=== PATIENT | male | born 1975 | race African-American/Black ===

== ENCOUNTER → 2022-07-22 | Outpatient (CLI) | payer OTHER ==
[~2022-07-22] VITALS: Ht 25.4 cm; Wt 128.0 kg
== END | disposition home or self-care (01) ==
LOC: DTH 12:19
PROVIDERS: ATTEND Surgery
DX: Z71.3 Dietary counseling and surveillance (principal); E66.9 Obesity, unspecified; Z68.41 Body mass index [BMI] 40.0-44.9, adult
CPT/HCPCS: 97802

== ENCOUNTER 2022-07-28 16:07 | Emergency (ER) | payer OTHER ==
[~2022-07-28] VITALS: Ht 177.8 cm; Wt 127.0 kg
[2022-07-28 16:23] VITALS: BP 144/96
[2022-07-28] MEDS ORDERED: CLIN-141 PO (18:06)
[2022-07-28] MEDS ORDERED: ACET-2079 PO (18:06)
== END 2022-07-28 18:16 | disposition home or self-care (01) ==
LOC: EDH 16:07
DX: K04.7 Periapical abscess without sinus (principal); E11.22 Type 2 diabetes mellitus with diabetic chronic kidney disease; N18.6 End stage renal disease; I95.9 Hypotension, unspecified; E78.00 Pure hypercholesterolemia, unspecified; Z79.899 Other long term (current) drug therapy

== ENCOUNTER → 2022-08-14 | Outpatient (CLI) | payer OTHER ==
[~2022-08-14] MED LIST: ACET-2079 PO; CLIN-141 PO
== END | disposition home or self-care (01) ==
LOC: DTH 11:49 → EDUNIT# 12:00
PROVIDERS: ATTEND Surgery
DX: Z71.3 Dietary counseling and surveillance (principal); E66.09 Other obesity due to excess calories; E11.9 Type 2 diabetes mellitus without complications; E78.00 Pure hypercholesterolemia, unspecified; M19.91 Primary osteoarthritis, unspecified site; K21.9 Gastro-esophageal reflux disease without esophagitis; G47.33 Obstructive sleep apnea (adult) (pediatric); Z68.39 Body mass index [BMI] 39.0-39.9, adult
CPT/HCPCS: 97803

== ENCOUNTER → 2022-09-04 | Outpatient (CLI) | payer OTHER | END | disposition home or self-care (01) | LOC: EDUNIT# 12:00 → DTH 12:29 | PROVIDERS: ATTEND Surgery | DX: Z71.3 Dietary counseling and surveillance (principal); E11.9 Type 2 diabetes mellitus without complications; K21.9 Gastro-esophageal reflux disease without esophagitis; E78.00 Pure hypercholesterolemia, unspecified; M19.91 Primary osteoarthritis, unspecified site; G47.33 Obstructive sleep apnea (adult) (pediatric); E66.09 Other obesity due to excess calories; Z68.39 Body mass index [BMI] 39.0-39.9, adult | CPT/HCPCS: 97803 ==

== ENCOUNTER 2024-12-02 07:37 | Day surgery (SDC) | payer OTHER ==
[2024-11-29 15:38] LABS: IMMATURE GRANULOCYTE ABSOLUTE 0.02 K/uL (0-1); NUCLEATED RED BLOOD CELLS 0.0 % (0.0-0.19); PLATELET COUNT (AUTO) 156 K/uL (130-400); RED BLOOD CELL COUNT(AUTO) 3.86 MIL/uL (4.50-6.20); RED CELL DISTRIBUTION WIDTH 13.4 % (11.0-15.5); WHITE BLOOD COUNT (AUTO) 6.5 K/uL (4.8-10.8)
[2024-11-29 15:59] LABS: ASPARTATE AMINOTRANSFERASE 16.0 U/L (10-37); GLOMERULAR FILTR. RATE CALC 5.0 mL/min (>90); GLUCOSE,RANDOM 182.0 mg/dL (70-105); SODIUM SERUM 139.0 mmol/L (136-145); TOTAL PROTEIN, SERUM 8.0 g/dL (6.0-8.3); UREA NITROGEN, BLOOD 43.0 mg/dL (7-18)
[2024-11-29 16:08] LABS: CREATININE 10.8 mg/dL (0.5-1.3); INR 1.02 (0.85-1.15)
[2024-11-29 16:10] VITALS: BP 149/72; PULSE 85; RESP 16; TEMP 98
[~2024-12-02] VITALS: Ht 177.8 cm; Wt 145.8 kg
[2024-12-02] VITALS (16 sets, daily range): BP systolic 114–172; BP diastolic 60–98; PULSE 68–87; RESP 14–20; TEMP 97.8–98.2
[~2024-12-02 07:37] MED LIST changes: -ACET-2079 PO; +AMMO385C4 TP; +ASPI-1443 PO; +CINA30 PO; -CLIN-141 PO; +FOLI0.8T22 PO; +MIDO5TAB4 PO; +PANT40TA54 PO; +ROSUVASTATIN PO; +SEVELAMER CARB PO; +SUCR500T PO; +TIZA2CAP9 PO
[2024-12-02] MEDS: 0.9% NACL 500ML IV.SOLN 500 ML IV ONE (09:11)
[2024-12-02 09:41] LABS: GLOMERULAR FILTR. RATE CALC 5.0 mL/min (>90); GLUCOSE,RANDOM 151.0 mg/dL (70-105); SODIUM SERUM 139.0 mmol/L (136-145); UREA NITROGEN, BLOOD 48.0 mg/dL (7-18)
[2024-12-02 09:46] LABS: CREATININE 11.2 mg/dL (0.5-1.3)
[2024-12-02] MEDS ORDERED: LIDOCAINE PF 100MG/5ML (2%) SYRINGE 5ML ONE (11:13)
[2024-12-02] MEDS ORDERED: SUCCINYLCHOLINE CHLORIDE 20 MG/ML 10 ML VIAL ONE (11:14)
[2024-12-02] MEDS ORDERED: GLYCOPYRROLATE 0.2 MG/ML 5 ML VIAL ONE (11:14)
[2024-12-02] MEDS ORDERED: NEOSTIGMINE METHYLSULFATE 1MG/ML IV ONE (11:14)
[2024-12-02] MEDS ORDERED: ALBUMIN (HUMAN) 25% 50 ML IV ONE (11:17)
[2024-12-02] MEDS ORDERED: MIDAZOLAM HCL 1 MG/ML 2ML VIAL ONE (11:19)
[2024-12-02] MEDS ORDERED: HEParin-NS 1,000 UNIT/500 ML 500 ML IV ONE (12:16)
[2024-12-02] MEDS ORDERED: SUGAMMADEX SODIUM 200 MG/2 ML VIAL IV ONE (15:53)
--- NOTE | 2024-12-02 17:51 | OP ---
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 Once general endotracheal anesthesia is achieved patient's left upper extremity is prepped and draped in sterile fashion. Using ultrasound guidance I identified the inflow and outflow of the fistula in the upper medial arm. There was a long stent at the venous outflow that was extending into the axillary region. I then created a longitudinal incision in the upper inner arm to expose the outflow. Identified the outflow of the vein and identified the stand and went to the end of the stent were there was a need of vein. This was a brachi obasilic fistula. We then proceeded to identify the anastomosis of the fistula to the artery that was in the lower medial portion of the arm and the medial aspect. Dissected through the skin and subcutaneous tissue and proceeded to expose the inflow here . Heparin 5000 units were given. Once we had proximal and distal control I then proceeded to use the [place] 35 vascular load to divide the fistula proximally and distally and we did this proximal to the stent. I then created a longitudinal incision over top of the aneurysms and then proceeded to use Bovie cautery to excise the aneurysm completely clipping it every branch from any collaterals that we identified. We then proceeded to obtain hemostasis at the surgical bed. I then proceeded to close his large incision where the aneurysm used to lay using 3-0 Vicryl running fashion. And leaving just the 2 incisions where we had exposure of the inflow and the outflow. Because of the presence of the large stent at the outflow. Decision is made to create a brachiocephalic fistula because the patient did have a good brachiocephalic fistula for creation. And decision is made not to do the interposition graft. We then proceeded to create a transverse incision at the antecubital fossa and dissected down through the skin and subcutaneous tissue to expose the cephalic vein vein. We exposed that for a length of about 6 cm. I then proceeded to release the cephalic vein in the antecubital fossa which is the upper arm and released it from attachments and any branches. Suture ligated the branches and transposed it to the medial portion of the arm to be able to create a anastomosis. We then proceeded to expose the brachial artery for a length of about 4 cm and obtained proximal and distal control. I then proceeded to clamp the cephalic vein proximally and distally divided it at the level of the elbow. And suture ligated the distal and end. We then proceeded to to dilate the vein with heparinized saline and ensured that there were no leaks from all the branches were clipped or sutured. I then clamped the brachial artery proximally and distally. I then proceeded to create a end-to-side anastomosis between the brachial artery and the cephalic vein at the antecubital fossa with 6-0 Prolene. I then opened up the clamp to the vein first and that there to be backflow. And then proceeded to open the proximal clamp on the artery to flush out the anastomosis and then open the distal clamp. I then proceeded to suture the anastomosis. I had to repeat the anastomosis 3 times because we could not get a good flow through it. At the end there was a flap from a valve that I had removed from the vein and then we had a good strong thrill. We ensured with a Doppler that we had a strong palmar arch pulse at the left hand and ulnar and radial pulses as well. We had a good thrill throughout the fistula. We then close the skin incisions in 2 layers with subcutaneous tissue being closed with 3-0 Vicryl in running fashion and the skin was closed with 4-0 Monocryl in running fashion. Dermabond was applied over top and skin dressings were applied over top patient tolerated the procedure well all counts were correct x2 at the end of the procedure. MAGALI MURDOCK MD Dec 02, 2024 17:51
== END 2024-12-02 18:05 | disposition home or self-care (01) ==
LOC: DAH 07:37
PROVIDERS: ATTEND Student in an Organized Health Care Education/Training Program
DX: I72.1 Aneurysm of artery of upper extremity (principal); N18.6 End stage renal disease; E11.9 Type 2 diabetes mellitus without complications; I50.9 Heart failure, unspecified; Z82.49 Family history of ischemic heart disease and other diseases of the circulatory system; Z83.3 Family history of diabetes mellitus; Z98.890 Other specified postprocedural states
CPT/HCPCS: 36818; 37799; 80053; 85025; 85610; 85730; 86850; 86900; 86901; 36415 ×2; 80048; 82948; 88304; A4223 ×2; A6260; A4663; J7030; J7040; J3010 ×3; J1100; J0330; J3490 ×4; J2003; J2720; J1644 ×2; J2250; J2704; J2405; P9047; J2710; J2371; J0690; A4649 ×4; C1713 ×3; A4215; A4222; A4221; A4216

== ENCOUNTER → 2025-05-09 | Outpatient (CLI) | payer OTHER ==
--- NOTE | 2025-05-10 01:50 | HMCIMG ---
STUDY: X-RAY OF THE CHEST, 2 VIEWS HISTORY: Not provided. TECHNIQUE: PA and lateral views of the chest are submitted for interpretation. COMPARISON: None provided. FINDINGS: Pulmonary carey: Pulmonary vascular markings are mildly prominent centrally, compatible with vascular congestion. No focal consolidation, pulmonary edema pattern, or discrete pulmonary nodule is identified. Cardiac silhouette: Mild cardiomegaly. Cardiac borders are otherwise preserved. Mediastinum and elvis: Mediastinal contours and elvis are within normal limits without evidence of mediastinal widening or hilar mass. Osseous structures: Visualized ribs, clavicles, scapulae, and thoracic spine demonstrate no acute osseous abnormality. Miscellaneous: A right internal jugular dialysis catheter is in situ, coursing along the right chest with its tip projecting at the expected atriocaval junction. No pleural effusion or pneumothorax is identified. Diaphragms and costophrenic angles are sharp. IMPRESSION: * Mild cardiomegaly with pulmonary vascular congestion, compatible with mild volume overload or elevated cardiac filling pressures in the appropriate clinical context. * Dialysis catheter in situ with tip projecting at the expected atriocaval junction, in satisfactory radiographic position. * No radiographic evidence of focal consolidation, pleural effusion, or pneumothorax. /[place]
== END | disposition home or self-care (01) ==
LOC: RAH 10:10
PROVIDERS: ATTEND Family Medicine
DX: I51.7 Cardiomegaly (principal); R05.3 Chronic cough; R09.89 Other specified symptoms and signs involving the circulatory and respiratory systems
CPT/HCPCS: 71046